=== PATIENT | female | born 1970 | race Asian ===

== ENCOUNTER 2016-09-06 15:01 | Emergency (ER) | payer MEDICAID, OTHER ==
[~2016-09-06] VITALS: Ht 157.5 cm; Wt 67.1 kg
[~2016-09-06 15:01] MED LIST: ACET-2158 PO; FER325 PO; LABE100T39 PO; Lanolin TOP; PREN-39 PO
[2016-09-06 15:10] VITALS: Ht 157.5 cm; Wt 67.1 kg
[2016-09-06] MEDS ORDERED: MTF1000T PO (15:25)
[2016-09-06] MEDS ORDERED: METH10TA5 PO (15:26)
[2016-09-06] MEDS ORDERED: CANA300T PO (15:26)
[2016-09-06] MEDS ORDERED: ALOG25TA2 PO (15:27)
[2016-09-06] MEDS ORDERED: LOSA25TA5 PO (15:27)
[2016-09-06] MEDS ORDERED: ATOR10TA65 PO (15:28)
[2016-09-06] MEDS ORDERED: PIOG15TA21 PO (15:30)
--- NOTE | 2016-09-06 15:35 | ERD ---
ER Documentation Chief Complaint Date/Time DATE: 09/06/16 TIME: 15:33 Chief Complaint refill of meds HPI Patient is a 45-year-old female who presents to the ED with medication refill. She states that she has almost run out of her medications and her primary care doctor told her that she can come to the ER for refills. Since she cannot get an appointment with her primary care for another week. She denies any symptoms today. She denies fever or chills. Denies polyuria, polydipsia or polyphagia. Denies weakness or sweating. Denies vomiting or diarrhea. Patient states that she has no complaints and is feeling well. She states that her blood pressure and her diabetes is under control. ROS All systems reviewed and are negative except as per history of present illness. Medications Home Meds Active Scripts Pioglitazone Hcl* (Pioglitazone Hcl*) 15 Mg Tablet, 15 MG PO DAILY for 30 Days, TAB Prov:NEFTALY ALLEN PA-C 09/06/16 Atorvastatin Calcium (Atorvastatin Calcium) 10 Mg Tablet, 10 MG PO QHS, #30 TAB Prov:NEFTALY ALLEN PA-C 09/06/16 Losartan Potassium* (Losartan Potassium*) 25 Mg Tablet, 25 MG PO DAILY for 30 Days, TAB Prov:NEFTALY ALLEN PA-C 09/06/16 Alogliptin Benzoate (Alogliptin) 25 Mg Tablet, 25 MG PO DAILY for 30 Days, TAB Prov:NEFTALY ALLEN PA-C 09/06/16 Canagliflozin (Invokana) 300 Mg Tablet, 300 MG PO DAILY for 30 Days, TAB Prov:NEFTALY ALLEN PA-C 09/06/16 Methimazole* (Methimazole*) 10 Mg Tablet, 10 MG PO TID for 30 Days, TAB Prov:NEFTALY ALLEN PA-C 09/06/16 Metformin* (Glucophage*) 1,000 Mg Tablet, 1000 MG PO BID, #60 TAB Prov:NEFTALY ALLEN PA-C 09/06/16 [Lanolin] 1 APPLIC OINT No Conflict Check, 1 APPLIC TOP BEDSIDE MEDICATION Y for BEDSIDE FOR LANEY TO NIPPLES for 7 Days, 5 Refills Prov:FANNY SLOAN MD 06/02/14 Labetalol Hcl (Labetalol Hcl) 100 Mg Tab, 100 MG PO BID for 14 Days, TAB Prov:FANNY SLOAN MD 06/02/14 Ferrous Sulfate* (Ferrous Sulfate*) 325 Mg Tabec, 325 MG PO DAILY for 30 Days Prov:FANNY SLOAN MD 05/21/14 Acetaminophen (TYLENOL 325 MG TAB) 325 Mg Tab, 650 MG PO Q4H Y for PAIN AND OR ELEVATED TEMP for 7 Days, TAB Prov:FANNY SLOAN MD 05/21/14 Reported Medications Vits W-Ca,Fe,Fa(<1MG) ( Vitamins) 1 Tab Tablet, 1 TAB PO 04/29/14 Allergies Allergies: Coded Allergies: No Known Allergies (Unverified Allergy, Unknown, 05/07/14) PMhx/Soc Hx Cardiac Disorders: Yes (Hypertension) Hx Miscellaneous Medical Probl: Yes (Diabetes) Hx Alcohol Use: No Hx Substance Use: No Hx Tobacco Use: No Smoking Status: Never smoker FmHx Family History: No coronary disease, No diabetes, No other Physical Exam Vitals Vital Signs Date Time Temp Pulse Resp B/P Pulse Ox O2 Delivery O2 Flow Rate FiO2 09/06/16 15:10 98.1 80 18 118/82 99 Physical Exam GENERAL: Well-developed, well-nourished female. Appears in no acute distress. HEAD: Normocephalic, atraumatic. EYES: Pupils are equally reactive bilaterally. EOMs grossly intact. No conjunctival erythema. ENT: Moist mucous membranes. No uvula deviation. No kissing tonsils. No exudates. NECK: Supple. No lymphadenopathy or thyromegaly. No meningismus. negative kernig. negative brudinski. LUNG: Clear to auscultation bilaterally. No rhonchi, wheezing, rales or coarse breath sounds. HEART: Regular rate and rhythm. No murmurs, rubs or gallops. NEUROLOGIC: Alert and oriented. Moving all four extremities. 5/5 strength in all extremities. Normal speech. Steady gait. SKIN: Normal color. Warm and dry. No rashes or lesions. Capillary refill < 2 seconds Procedures/MDM ER COURSE: I kept the patient and/or family informed of laboratory and diagnostic imaging results throughout the emergency room course. MEDICAL DECISION MAKING: This is a 45-year-old with a past medical history of diabetes and hypertension who presents with medication refill. Vital signs were reviewed. Patient is afebrile. Patient is not hypoxic. I have low suspicion for hypertensive urgency , emergency or endorgan damage. I have low suspicion for DKA or HON K. Patient is asymptomatic and is only here for refills and does not want any further imaging studies or blood work. DISCHARGE: At this time, patient is stable for discharge and outpatient management with no new complaints during the ER course. Patient was sent home with refills of her medications as listed above.. Patient will be discharged home with instructions to recheck for new or worsening symptoms such as fever, nausea, weakness, LOC and to follow up with primary care in the next 1-2 days. Patient was advised to return to the ER for any new or worsening symptoms. Plan was discussed and patient and/or family understands and agrees. Home instructions were given. Departure Diagnosis: Primary Impression: Encounter for medication refill Condition: Stable Patient Instructions: Taking Medicine Safely Referrals: NO PRIMARY,CARE PHYSICIAN (PCP) Additional Instructions: Call your primary care doctor TOMORROW for an appointment during the next 1-2 days.See the doctor sooner or return here if your condition worsens before your appointment time. NEFTALY ALLEN PA-C Sep 06, 2016 15:35
== END 2016-09-06 15:31 | disposition home or self-care (01) ==
LOC: E/R 15:01
DX: Z76.0 Encounter for issue of repeat prescription (principal); I10 Essential (primary) hypertension; E11.9 Type 2 diabetes mellitus without complications; Z79.84 Long term (current) use of oral hypoglycemic drugs
CPT/HCPCS: 99281

== ENCOUNTER 2019-01-23 18:39 | Emergency (ER) | payer OTHER ==
[~2019-01-23] VITALS: Ht 152.4 cm; Wt 62.3 kg
[~2019-01-23 18:39] MED LIST changes: +ACET325T33 PO; +ALOG25TA2 PO; +ATOR10TA65 PO; +BACL10TA PO; +CANA300T PO; +IBUP-1542 PO; +LOSA25TA12 PO; +METH10TA5 PO; +MTF1000T PO; +PIOG15TA67 PO
[2019-01-23 18:48] VITALS: BP 143/98; PULSE 86; RESP 18; Ht 152.4 cm; Wt 62.3 kg
== END 2019-01-23 21:41 | disposition home or self-care (01) ==
LOC: FTE 18:39
DX: M54.5 Low back pain (principal); E11.9 Type 2 diabetes mellitus without complications; I10 Essential (primary) hypertension; Z79.84 Long term (current) use of oral hypoglycemic drugs
CPT/HCPCS: 81003; 81025; Z7502; 99283